=== PATIENT | female | born 1990 | race Caucasian/White ===

== ENCOUNTER → 2016-10-02 | Outpatient (CLI) | payer BC ==
[~2016-10-02] MED LIST: BCTROWC EXT; HYDR-5688 PO; MAGN1CAP4 PO; OMEG10007 PO; PRENTAB26 PO; RANI150T3 PO
== END | disposition home or self-care (01) ==
LOC: C.PAPS 09:40
PROVIDERS: ATTEND Obstetrics & Gynecology
DX: Z01.419 Encounter for gynecological examination (general) (routine) without abnormal findings (principal)

== ENCOUNTER → 2016-11-04 | Outpatient (CLI) | payer BC | END | disposition home or self-care (01) | LOC: C.PATHSPEC 12:24 | PROVIDERS: ATTEND Obstetrics & Gynecology | DX: N84.3 Polyp of vulva (principal) ==

== ENCOUNTER → 2017-04-21 | Outpatient (CLI) | payer BC ==
[2017-04-21 14:54] LABS: URINE APPEARANCE CLOUDY (CLEAR); URINE BILIRUBIN NEG (NEG); URINE COLOR YELLOW; URINE EPITHELIAL CELL AUTO >30 /lpf (0-5); URINE NITRITE NEG (NEG); URINE PH 7.5 (4.5-7.5); UROBILINOGEN NEG (NEG)
[2017-04-21 15:10] LABS: MANUAL MICROSCOPIC REQUIRED? NO; REVIEW REQ? NO
== END | disposition home or self-care (01) ==
LOC: C.LAB1850 13:10
PROVIDERS: ATTEND Obstetrics & Gynecology
DX: R39.9 Unspecified symptoms and signs involving the genitourinary system (principal)

== ENCOUNTER 2017-04-27 17:03 | Emergency (ER) | payer BC ==
[~2017-04-27] VITALS: Ht 162.6 cm; Wt 62.0 kg
[~2017-04-27 17:03] MED LIST changes: -BCTROWC EXT; -HYDR-5688 PO; -MAGN1CAP4 PO; -OMEG10007 PO
[2017-04-27 17:10] VITALS: Ht 162.6 cm; Wt 62.0 kg
[2017-04-27] MEDS ORDERED: OMEG10007 PO (18:02)
[2017-04-27] MEDS ORDERED: MAGN1CAP4 PO (18:02)
[2017-04-27 18:18] LABS: BUN/CREATININE RATIO 19.4 (10-20); CALCIUM 9.2 mg/dl (8.5-10.1); CREATININE 0.82 mg/dl (0.60-1.20); POTASSIUM 4.1 mmol/L (3.5-5.1)
[2017-04-27 18:26] LABS: BASO % 0.4 %; BASO ABS # 0.02 K/uL (0-0.2); COMPLETE YES; EOS % 2.2 %; IG% 0.2 %; LYMPH % 27.8 %; MEAN CELL VOLUME 91.1 fL (80-100); MEAN CORPUSCULAR HEMOGLOBIN 30.1 pg (25-34); MEAN PLATELET VOLUME 10.2 fL (7.4-10.4); MONO % 12.5 %; NEUT % 56.9 %; PLATELET COUNT 189 K/uL (130-400); RED BLOOD COUNT 4.72 M/uL (4.2-5.4); WHITE BLOOD COUNT 5.03 K/uL (4.8-10.8)
[2017-04-27] MEDS ORDERED: BCTROWC EXT (19:00)
[2017-04-27] MEDS ORDERED: NORCO 5/325MG HOME PACK PO ONE (19:00)
[2017-04-27] MEDS ORDERED: HYDR-5688 PO (19:00)
[2017-04-27 19:37] VITALS: BP 113/59; PULSE 62; TEMP 36.9; O2SAT 99
[2017-04-27] MEDS ORDERED: MUPIROCIN 2% OINT 22 GM TUBE EXT ONE (21:00)
--- NOTE | 2017-04-28 23:22 | EMERGENCY ROOM VISIT NOTE ---
ED Visit Note First contact with patient: 17:12 Chief Complaint: I have cellulitis of my face. History of Present Illness: Ms. Germain is a 26-year-old white female who ambulates into the ED accompanied by male friend complaining of facial cellulitis. Patient reports 2 days ago she noticed a cold sore looking lesion on her upper lip on the right. Then the lesion ruptured open last night. When she awoke earlier today she reports she was having lip swelling and facial pain. She was seen at an urgent care center and the attending physician diagnosed her with facial cellulitis and started her on Bactrim. He also encouraged her to come to the emergency department for worsening pain. Currently patient is complaining of a burning pain in the area of her lip lesion. She rates her discomfort 7/10. Her pain is radiating out from the lesion into the cheek, mandible and into the anterior neck. Her pain worsens with palpation of the lesion and movements of the lip. She has not identified any alleviating factors related to the pain. She has not taken any medications for pain prior to arrival at the hospital but does report she started her antibiotics. She denies fevers today but reports last night she was cold and had chills all night. She denies other skin eruptions, other skin color changes, headache, dizziness, lightheadedness, upper respiratory tract symptoms, cough, shortness of breath, chest pain, decreased appetite, nausea, vomiting, abdominal pain, facial numbness/tingling. Review of Systems: As noted above in history of present illness. All body systems were reviewed and found to be negative as noted above. Past Medical History: Specify urinary symptoms, unspecified knee surgery. Current Medications: Multivitamins, fish oil, magnesium. Allergies to Medications: Patient denies. Social History: Patient is not employed; she feels safe in her home environment ; she denies tobacco and alcohol use. Physical Examination: Vital Signs: Date Time Temp Pulse Resp B/P (MAP) Pulse Ox O2 Delivery O2 Flow Rate FiO2 04/27/17 19:37 36.9 62 18 113/59 99 04/27/17 17:10 36.9 95 20 105/60 100 Room Air GENERAL: 26-year-old female in mild distress due to pain, nontoxic-appearing, afebrile and hemodynamically stable. NEUROLOGICAL: Awake, alert and oriented to person, place and time. Answering questions appropriately and following commands. Normal gait. Good hand eye coordination. No focal motor sensory deficits. SKIN: Warm, dry and pink. Right upper lip shows a erythematous skin erosion measuring approximately 1 cm oval in shape surrounded by a clinic crossed. No lymphangitis. Mild edema. Patient has no erythema or edema in the area of her radiation of pain. HEENT: Atraumatic and normocephalic. PERRLA. Sclera white and conjunctiva pink. No drainage from naris. Soft tissue on lips as noted above in SKIN. Oral cavity moist and pink. No intraoral lesions or obvious dental disease. Airway patent. Speech normal. No lymphadenopathy. THORAX: Lungs sounds are clear to auscultation and equal bilaterally with symmetrical chest wall. ABDOMEN: Flat, soft and nontender. Positive bowel sounds in all quadrants. No guarding, rigidity or organomegaly. EXTREMITIES: Moves all extremities well on command and with purpose. ED Course: Patient is assessed as noted above. Patient's medication list was reviewed. Laboratory Testing: Test 04/27/17 17:50 Range/Units White Blood Count 5.03 4.8-10.8 K/uL Red Blood Count 4.72 4.2-5.4 M/uL Hemoglobin 14.2 12.0-16.0 g/dL Hematocrit 43.0 37-47 % Mean Corpuscular Volume 91.1 80-100 fL Mean Corpuscular Hemoglobin 30.1 25-34 pg Mean Corpuscular Hemoglobin Concent 33.0 32-36 g/dl Platelet Count 189 130-400 K/uL Mean Platelet Volume 10.2 7.4-10.4 fL Neutrophils (%) (Auto) 56.9 % Lymphocytes (%) (Auto) 27.8 % Monocytes (%) (Auto) 12.5 % Eosinophils (%) (Auto) 2.2 % Basophils (%) (Auto) 0.4 % Neutrophils # (Auto) 2.86 1.4-6.5 K/uL Lymphocytes # (Auto) 1.40 1.2-3.4 K/uL Monocytes # (Auto) 0.63 0.11-0.59 K/uL Eosinophils # (Auto) 0.11 0-0.5 K/uL Basophils # (Auto) 0.02 0-0.2 K/uL RDW Standard Deviation 41.0 36.4-46.3 fL RDW Coefficient of Variation 12.2 11.5-14.5 % Immature Granulocyte % (Auto) 0.2 % Immature Granulocyte # (Auto) 0.01 0.00-0.02 K/uL Sodium Level 139 136-145 mmol/L Potassium Level 4.1 3.5-5.1 mmol/L Chloride Level 104 98-107 mmol/L Carbon Dioxide Level 30 21-32 mmol/L Anion Gap 5.0 3-11 mmol/L Blood Urea Nitrogen 16 7-18 mg/dl Creatinine 0.82 0.60-1.20 mg/dl Est Creatinine Clear Calc Drug Dose 88.3 ml/min Estimated GFR () 112.9 Estimated GFR (Non- 97.4 BUN/Creatinine Ratio 19.4 10-20 Random Glucose 90 70-99 mg/dl Calcium Level 9.2 8.5-10.1 mg/dl Patient was offered pain medication and refused. Patient was reassessed multiple times during her stay in the emergency department. Patient's case was reviewed with Dr. Saucedo; we agreed on diagnostic approach, treatment, disposition and plan. Patient was educated about today's findings and instructed on her treatment plan ; she verbalized understanding and agreement with this plan. Clinical Impression: Impetigo on lip. Decision-Making: Initially my differential diagnosis I considered impetigo, cellulitis, herpes zoster and other causes. Disposition: Patient discharged home in stable condition accompanied by her ; prior to departure she was reassessed and subjectively reported she was pain-free. Plan: Patient was encouraged to continue her current medications as prescribed including her Bactrim as prescribed. Patient was prescribed Bactroban for her rash and instructed on achieves. Patient was placed on a sliding pain medication scale of ibuprofen, acetaminophen or Mccrory; she was given appropriate narcotic precautions and her name was checked on the state database and no red flags were noted. Patient was encouraged to keep her hands well cleansed. Patient was encouraged to follow-up with family physician for recheck in 36-48 hours. Patient was encouraged return ED for spreading rash, fevers, uncontrolled pain or any new/concerning symptoms.
== END 2017-04-27 19:20 | disposition home or self-care (01) ==
LOC: C.EDB 17:04
DX: L01.00 Impetigo, unspecified (principal)

== ENCOUNTER 2023-04-22 16:24 | Inpatient (IN) ==
[2023-04-22] MEDS ORDERED: SODIUM CHLORIDE 0.9% 1,000 ML IV STA (16:42)
[2023-04-22] MEDS ORDERED: KETOROLAC TROMETHAMINE 15 MG/ML VIAL IV STA (16:42)
[2023-04-22] MEDS ORDERED: ONDANSETRON INJ 2 MG/ML 2 ML VIAL IV STA ×2 (16:42→21:07)
--- NOTE | 2023-04-22 16:42 | ED Triage Note ---
Date of Service April 22, 2023 History of Present Illness This patient was briefly evaluated while in triage. An abbreviated physical exam was performed. This patient is a 32-year-old Female who presents to the ED for evaluation of "extreme pain right here (points to RLQ). I thought it was food poisoning because I had diarrhea, nausea, and vomiting, but it's not getting better." Pt. been unable to keep anything down. Reports "low grade fever of 99.8." Pt. reports chills all day. States had food poisoning about a month ago with similar symptoms. Pt. states she does use medical marijuana as a vape. Physical Exam VITALS: Vitals are noted on the nurse's note and reviewed by myself. GENERAL: This is a 32 year old female, in no acute distress, nondiaphoretic, well-developed well-nourished. SKIN: No obvious rashes, edema, erythema HEAD: Normocephalic atraumatic. EYES: Conjunctivae without injection, sclerae without icterus. NECK: No JVD. LUNGS: No retractions or accessory muscle use. MUSCULOSKELETAL: Normal gait. NEURO: Patient was alert and oriented to person place and time. No focal neurological deficits. Initial orders for labs and / or imaging were placed and patient was placed in the waiting area until a bed is available. Please see further documentation for the full ED course. MDM / Impression Impression Impression: Acute appendicitis, Acute right lower quadrant pain Impression: Acute appendicitis Qualifiers: Acute appendicitis type: with localized peritonitis Appendicitis gangrene presence: unspecified whether gangrene present Appendicitis perforation presence: unspecified whether perforation present Appendicitis abscess presence: unspecified whether abscess present Qualified Code(s): K35.30 - Acute appendicitis with localized peritonitis, without perforation or gangrene
[2023-04-22 18:18] LABS: Basophils # (auto) 0.04 K/uL (0.00-0.20); Basophils % (auto) 0.3 %; Eosinophils # (auto) 0.01 K/uL (0.00-0.50); Eosinophils % (auto) 0.1 %; Hematocrit (blood only) 46.7 % (37.0-47.0); Hemoglobin 15.9 g/dl (12.0-16.0); Immature Granulocytes # (auto) 0.06 K/uL (0.01-0.20); Immature Granulocytes % (auto) 0.4 %; Lymphocytes # (auto) 1.04 K/uL (1.20-3.40); Lymphocytes % (auto) 6.8 %; Mean Corpuscular Hemoglobin 31.4 pg (25.0-34.0); Mean Corpuscular Volume 92.3 fL (80.0-100.0); Mean Platelet Volume 10.2 fL (9.4-12.4); Monocytes # (auto) 0.67 K/uL (0.11-0.59); Monocytes % (auto) 4.4 %; Neutrophils # (auto) 13.42 K/uL (1.40-6.50); Platelet Count 203 K/uL (130-400); RDW Standard Deviation 40.3 fL (36.4-46.3); Red Blood Count 5.06 M/uL (4.20-5.40); White Blood Count 15.24 K/ul (4.8-10.8)
[2023-04-22 18:33] LABS: Albumin Globulin Ratio 1.5 (0.9-2); Albumin Level 4.6 gm/dl (3.4-5.0); BUN Creatinine Ratio 20.5 (10-20); Bilirubin,Total 1.2 mg/dl (0.2-1.0); Calcium 9.6 mg/dl (8.6-10.3); Creatinine Clr Calc Pharmacy 78.9 ml/min; Est GFR (African American) 99.4 ml/min; Est GFR (Non-African American) 85.7 ml/min; Potassium 4.5 mmol/L (3.5-5.1); Total Protein 7.6 gm/dl (6.0-8.3)
[2023-04-22 18:41] LABS: Pregnancy Test, Serum Negative (Negative)
[2023-04-22 19:04] LABS: Appearance Urine Clear (Clear); Bacteria Urine Automated Negative (Negative); Bilirubin Urine Negative (Negative); Blood Urine Negative (Negative); Color Urine Dark Yellow; Epithelial Cell Urine Auto >30 /lpf (0-5); Glucose Urine UA Negative (Negative); Ketones Urine Trace (Negative); Leukocyte Esterase Urine Negative (Negative); Nitrite Urine Negative (Negative); Protein Urine Trace (Negative); Specific Gravity Urine 1.028 (1.000-1.030); Urobilinogen Urine Negative (Negative)
[2023-04-22] MEDS ORDERED: OPTIRAY 320 100ml IV ONE (20:18)
--- NOTE | 2023-04-22 20:56 | CT Scan Report ---
Exam(s): CT ABDOMEN + PELVIS With Contrast IV Amt: 92 ml optiray 320 EXAM: CT Abdomen and Pelvis With Intravenous Contrast CLINICAL HISTORY: Reason for exam: RLQ pain. TECHNIQUE: Axial computed tomography images of the abdomen and pelvis with intravenous contrast. CTDI is 8.99 mGy and DLP is 421.45 mGy-cm. Automated exposure control was utilized for the study. A dose lowering technique was utilized adhering to the principles of ALARA. CONTRAST: Patient received 92 ml optiray 320 of IV contrast COMPARISON: No relevant prior studies available. FINDINGS: Lung bases: Unremarkable. No mass. No consolidation. ABDOMEN: Liver: Unremarkable. No mass. Gallbladder and bile ducts: Unremarkable. No calcified stones. No ductal dilation. Pancreas: Unremarkable. No mass. No ductal dilation. Spleen: Unremarkable. No splenomegaly. Adrenals: Unremarkable. No mass. Kidneys and ureters: Unremarkable. No solid mass. No hydronephrosis. Stomach and bowel: Unremarkable. No obstruction. No mucosal thickening. PELVIS: Appendix: Positive for acute appendicitis, consisting of a distended appendix measuring up to 9 mm with mild wall thickening and mild periappendiceal edema. Bladder: Unremarkable. No mass. Reproductive: Unremarkable as visualized. ABDOMEN and PELVIS: Intraperitoneal space: Unremarkable. No free air. No significant fluid collection. Bones/joints: No acute fracture. No dislocation. Soft tissues: Unremarkable. Vasculature: Unremarkable. No abdominal aortic aneurysm. Lymph nodes: Unremarkable. No enlarged lymph nodes. IMPRESSION: Positive for acute appendicitis, consisting of a distended appendix measuring up to 9 mm with mild wall thickening and mild periappendiceal edema. No perforation or abscess. Communications: Verify Receipt Electronically signed by: Israel Sy MD 04/22/23 20:56 PM
[2023-04-22] MEDS ORDERED: SODIUM CHLORIDE 0.9% 1,000 ML IV ONE (21:07)
[2023-04-22] MEDS ORDERED: cefOXitin 2,000 MG/60 ML BAG IV STA (21:07)
[2023-04-22] MEDS ORDERED: MoRPHine SULFATE 4 MG/ML 1 ML CARP\\VIAL IV STA (21:07)
--- NOTE | 2023-04-22 21:18 | Emergency Department Note ---
Impression & Plan Acute appendicitis, Acute right lower quadrant pain ED Provider Note NAME: KAIDEN EDDY AGE: 32 SEX: F : 1990 ARRIVES VIA: Walk-In INFORMANT: Patient, ED PROVIDER(S): Martinez Suresh DO CHIEF COMPLAINT: Right lower quadrant abdominal pain HPI: The patient is a 32-year-old female who presented to the emergency department for an evaluation of right-sided abdominal pain. The patient's had ongoing pain since this morning. She is also noticed nausea and vomiting. Initially she thought it could be from food poisoning. He has no sick contacts. She did not see a provider prior to coming emergency department. Because of ongoing and worsening pain she presented to the emergency department for further evaluation. The patient states her pain is worse with ambulation as well as palpation over the abdomen. She denies having any hematemesis or black stool. ROS: See above HPI for pertinent positives & negatives. A total of 10 systems reviewed and were otherwise negative. PAST MEDICAL HISTORY: See Below PAST SURGICAL HISTORY: See Below FAMILY HISTORY: See Below SOCIAL HISTORY: See Below HOME MEDICATIONS: See Below ALLERGIES: See Below VITALS: See Below PHYSICAL EXAMINATION: GENERAL: The patient is awake and alert. She is very anxious and uncomfortable appearing. The patient was treated with nausea medication. EYES: The conjunctivae are clear. The pupils are round and reactive. EARS, NOSE, MOUTH AND THROAT: The nose is without any evidence of any deformity. NECK: The neck is nontender and supple. RESPIRATORY: Normal respiratory effort is noted there is no evidence of wheezing rhonchi or rales CARDIOVASCULAR: Regular rate and rhythm noted there no murmurs rubs or gallops normal S1 normal S2. GASTROINTESTINAL: The abdomen was soft and nondistended. There is significant right lower quadrant tenderness to palpation with guarding in the right lower quadrant. MUSCULOSKELETAL/EXTREMITIES: There is no evidence of gross deformity full range of motion is noted in the hips and shoulders. SKIN: There is no obvious evidence of any rash. There are no petechiae, pallor or cyanosis noted. NEUROLOGIC: Patient is awake alert and oriented x3 MEDICAL DECISION MAKING: The patient is a 32-year-old female who presented to the emergency department for an evaluation of right lower quad abdominal pain. The patient's laboratory studies did reveal an elevation in her white blood cell count. She was found to have signs of appendicitis on CT. I discussed the patient's laboratory and radiographic studies with her and her significant other. I also discussed her condition with the on-call general surgical group. They have agreed to evaluate the patient in the emergency department. Triage Nursing notes reviewed. Prior medical records reviewed Vital Signs: reviewed and remarkable for no significant abnormalities Differential diagnosis: Etiologies such as appendicitis, diverticulitis, obstruction, inflammatory bowel disease, renal colic, PUD, biliary pathology, pancreatitis, mesenteric ischemia, aortic pathology, infections, genitourinary, UTI, perforated viscus, as well as others were entertained. ER treatment provided: See below Diagnostics interpreted by me: ECG: none Cardiac Monitoring: An order was placed for continuous cardiac monitoring. The monitor shows a rate of 87 bpm with sinus rhythm. Laboratory studies: As stated above and show below. Imaging studies: See below. Radiographic imaging was reviewed by myself Consultation(s): I discussed this case with Zeferino Wall who is covering for general surgery. Past Med/Surg History Medical History 40 weeks gestation of (08/16/14) Acne Ankle pain, left Attention 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 hyperactivity Controlled substance agreement broken Controlled substance agreement broken Depression with anxiety Dysmenorrhea Encounter for routine gynecological examination Excessive sweating Herpes simplex Hymenal remnant Removed in office 2017 [place] Hypertension Insomnia Irregular contractions Leakage of amniotic fluid (08/16/14) Migraine headache Normal spontaneous vaginal delivery Panic disorder with agoraphobia Polycystic ovarian syndrome Seizures (08/04/13) Syncope Tremor Surgical History H/O knee surgery H/O oral surgery Hx of LASIK Family History Father Crohn's disease Diabetes Mother Anxiety Grandfather (Paternal) Myocardial infarction Denies family history of Ovarian cancer Prostate cancer Breast cancer Colorectal cancer Social History Smoking Status: Never smoker Cigarettes Per Day: Vape occasionally; Second Hand Exposure: No; Do You Dip or Chew Tobacco: No; Hx Alcohol Use: No Hx Substance Use: Yes Prescribed Medications: Marijuana Preferred Language: [place] Communication Ability: Effective Hearing Ability: Normal marital status: Current Living Situation: Family current occupational status: unemployed current occupation: Homemaker Feels Safe at Home: Yes Childhood Exposure to Second-Hand Smoke: No Diet: regular caffeine: Yes Dental Care, Regularly: Yes Physical Activity Frequency: 5-6 Times per Week Seatbelt Use: always Sunscreen Use: Yes Allergies Allergies Allergy/AdvReac Type Severity Reaction Status Date / Time No Known Drug Allergies Allergy Verified 02/11/23 14:30 Home Meds Home Medications Medication Instructions Recorded Confirmed multivitamin,[id number] 1 tab PO DAILY 04/08/19 02/11/23 (Complete Multivitamin tablet) Medical Marjuana inhalation 02/11/23 02/11/23 Previous Rx's Medication Instructions Recorded cetirizine 5 mg-pseudoephedrine ER 1 tab PO BID #60 tabs 04/24/22 120 mg tablet,extended release,12hr (Zyrtec-D) fluticasone propionate 50 1 spray intranasal DAILY #16 grams 04/24/22 mcg/actuation nasal spray,suspension (Flonase Allergy Relief) levonorgestrel-ethinyl estradiol 1 tab PO DAILY #112 tabs 02/11/23 0.1 mg-20 mcg tablet (Lutera (28)) valacyclovir 1 gram tablet 2,000 mg PO BID PRN cold sores #4 02/11/23 (Valtrex) tabs trazodone 50 mg tablet 50 mg PO HS insomnia #90 tabs 04/22/23 Results & Data (ED) Vital Signs Vital Signs - 24 hr 04/22/23 16:41 Temperature 36.9 C Temperature Source Temporal Artery Scan Pulse Rate 87 Respiratory Rate 18 Respiratory Effort / Characteristics Non-Labored Respiratory Depth Normal Blood Pressure 133/68 Blood Pressure Mean 89 Pulse Oximetry 100 Oxygen Delivery Method Room Air Sepsis Recent Fever Within 48 Hours No Sepsis New/Unexplained Change in Mental Status No Sepsis Action Taken by Nursing No Action Required Home Medications Current Medication List: was personally reviewed by me Laboratory Data Attestation: I reviewed the patient's lab results. 04/22/23 17:46 04/22/23 17:46 Lab Results 04/22/23 04/22/23 04/22/23 Range/Units 17:46 17:46 17:46 WBC 15.24 H (4.8-10.8) K/ul RBC 5.06 (4.20-5.40) M/uL Hgb 15.9 (12.0-16.0) g/dl Hct 46.7 (37.0-47.0) % MCV 92.3 (80.0-100.0) fL MCH 31.4 (25.0-34.0) pg MCHC 34.0 (32.0-36.0) g/dL RDW Std Deviation 40.3 (36.4-46.3) fL RDW Coeff of Malika 12.0 (11.5-14.5) % Plt Count 203 (130-400) K/uL MPV 10.2 (9.4-12.4) fL Immature Gran % (Auto) 0.4 % Neut % (Auto) 88.0 % Lymph % (Auto) 6.8 % [place] % (Auto) 4.4 % Eos % (Auto) 0.1 % Baso % (Auto) 0.3 % Neut # (Auto) 13.42 H (1.40-6.50) K/uL Lymph # (Auto) 1.04 L (1.20-3.40) K/uL [place] # (Auto) 0.67 H (0.11-0.59) K/uL Eos # (Auto) 0.01 (0.00-0.50) K/uL Baso # (Auto) 0.04 (0.00-0.20) K/uL Immature Gran # (Auto) 0.06 (0.01-0.20) K/uL Sodium 139 (136-145) mmol/L Potassium 4.5 (3.5-5.1) mmol/L Chloride 101 (98-107) mmol/L Carbon Dioxide 29 (21-32) mmol/L Anion Gap 9 (3-11) BUN 18 (6-23) mg/dl Creatinine 0.88 (0.6-1.2) mg/dl Est Cr Clr Drug Dosing 78.9 ml/min Est GFR ( Amer) 99.4 ml/min Est GFR (Non-Af Amer) 85.7 ml/min BUN/Creatinine Ratio 20.5 H (10-20) Glucose 108 H (70-99(Fasting)) mg/dl Calcium 9.6 (8.6-10.3) mg/dl Total Bilirubin 1.2 H (0.2-1.0) mg/dl AST 22 (13-39) U/L ALT 22 (7-52) U/L Alkaline Phosphatase 45 (34-104) U/L Total Protein 7.6 (6.0-8.3) gm/dl Albumin 4.6 (3.4-5.0) gm/dl Globulin 3.0 (2.5-4.0) gm/dl Albumin/Globulin Ratio 1.5 (0.9-2) Lipase 15 (11-82) U/L HCG, Qual Negative (Negative) Urine Color Urine Appearance (Clear) Urine pH (4.5-7.5) Ur Specific [place] (1.000-1.030) Urine Protein (Negative) Urine Glucose (UA) (Negative) Urine Ketones (Negative) Urine Blood (Negative) Urine Nitrite (Negative) Urine Bilirubin (Negative) Urine Urobilinogen (Negative) Ur Leukocyte Esterase (Negative) Urine WBC (Auto) (0-5) /hpf Urine RBC (Auto) (0-4) /hpf U Hyaline Cast (Auto) (0-5) /lpf U Epithel Cells (Auto) (0-5) /lpf Urine Bacteria (Auto) (Negative) 04/22/23 Range/Units 17:56 WBC (4.8-10.8) K/ul RBC (4.20-5.40) M/uL Hgb (12.0-16.0) g/dl Hct (37.0-47.0) % MCV (80.0-100.0) fL MCH (25.0-34.0) pg MCHC (32.0-36.0) g/dL RDW Std Deviation (36.4-46.3) fL RDW Coeff of Malika (11.5-14.5) % Plt Count (130-400) K/uL MPV (9.4-12.4) fL Immature Gran % (Auto) % Neut % (Auto) % Lymph % (Auto) % Mes[place] % (Auto) % Eos % (Auto) % Baso % (Auto) % Neut # (Auto) (1.40-6.50) K/uL Lymph # (Auto) (1.20-3.40) K/uL [place] # (Auto) (0.11-0.59) K/uL Eos # (Auto) (0.00-0.50) K/uL Baso # (Auto) (0.00-0.20) K/uL Immature Gran # (Auto) (0.01-0.20) K/uL Sodium (136-145) mmol/L Potassium (3.5-5.1) mmol/L Chloride (98-107) mmol/L Carbon Dioxide (21-32) mmol/L Anion Gap (3-11) BUN (6-23) mg/dl Creatinine (0.6-1.2) mg/dl Est Cr Clr Drug Dosing ml/min Est GFR ( Amer) ml/min Est GFR (Non-Af Amer) ml/min BUN/Creatinine Ratio (10-20) Glucose (70-99(Fasting)) mg/dl Calcium (8.6-10.3) mg/dl Total Bilirubin (0.2-1.0) mg/dl AST (13-39) U/L ALT (7-52) U/L Alkaline Phosphatase (34-104) U/L Total Protein (6.0-8.3) gm/dl Albumin (3.4-5.0) gm/dl Globulin (2.5-4.0) gm/dl Albumin/Globulin Ratio (0.9-2) Lipase (11-82) U/L HCG, Qual (Negative) Urine Color Dark Yellow Urine Appearance Clear (Clear) Urine pH 7.0 (4.5-7.5) Ur Specific [place] 1.028 (1.000-1.030) Urine Protein Trace H (Negative) Urine Glucose (UA) Negative (Negative) Urine Ketones Trace H (Negative) Urine Blood Negative (Negative) Urine Nitrite Negative (Negative) Urine Bilirubin Negative (Negative) Urine Urobilinogen Negative (Negative) Ur Leukocyte Esterase Negative (Negative) Urine WBC (Auto) 1-5 (0-5) /hpf Urine RBC (Auto) 5-10 H (0-4) /hpf U Hyaline Cast (Auto) 1-5 (0-5) /lpf U Epithel Cells (Auto) >30 H (0-5) /lpf Urine Bacteria (Auto) Negative (Negative) Administered Medications Discontinued Medications Sodium Chloride (Nss) 1,000 mls @ 999 mls/hr IV .Q1H1M STA Stop: 04/22/23 17:42 Last Admin: 04/22/23 17:55 Dose: 999 mls/hr Documented By: AM Ioversol (Optiray 320 100ml) 92 ml IV ONCE ONE Stop: 04/22/23 20:19 Last Admin: 04/22/23 20:19 Dose: 92 ml Documented By: RANJIT Ketorolac Tromethamine (Ketorolac Tromethamine 15 Mg/Ml Vial) 10 mg IV NOW STA Stop: 04/22/23 16:43 Last Admin: 04/22/23 17:52 Dose: 10 mg Documented By: AM Ondansetron HCl (Ondansetron Inj 2 Mg/Ml 2 Ml Vial) 4 mg IV NOW STA Stop: 04/22/23 16:43 Last Admin: 04/22/23 17:50 Dose: 4 mg Documented By: AM Imaging Data Attestation: I personally reviewed and interpreted this imaging study as follows: My Impression: CT of the abdomen and pelvis was obtained in the emergency department. My interpretation is right lower quadrant inflammation. Final report below. Radiologist's Impression: Abdomen/Pelvis CT 04/22/23 16:42 CR Exam(s): CT ABDOMEN + PELVIS With Contrast IV Amt: 92 ml optiray 320 EXAM: CT Abdomen and Pelvis With Intravenous Contrast CLINICAL HISTORY: Reason for exam: RLQ pain. TECHNIQUE: Axial computed tomography images of the abdomen and pelvis with intravenous contrast. CTDI is 8.99 mGy and DLP is 421.45 mGy-cm. Automated exposure control was utilized for the study. A dose lowering technique was utilized adhering to the principles of ALARA. CONTRAST: Patient received 92 ml optiray 320 of IV contrast COMPARISON: No relevant prior studies available. FINDINGS: Lung bases: Unremarkable. No mass. No consolidation. ABDOMEN: Liver: Unremarkable. No mass. Gallbladder and bile ducts: Unremarkable. No calcified stones. No ductal dilation. Pancreas: Unremarkable. No mass. No ductal dilation. Spleen: Unremarkable. No splenomegaly. Adrenals: Unremarkable. No mass. Kidneys and ureters: Unremarkable. No solid mass. No hydronephrosis. Stomach and bowel: Unremarkable. No obstruction. No mucosal thickening. PELVIS: Appendix: Positive for acute appendicitis, consisting of a distended appendix measuring up to 9 mm with mild wall thickening and mild periappendiceal edema. Bladder: Unremarkable. No mass. Reproductive: Unremarkable as visualized. ABDOMEN and PELVIS: Intraperitoneal space: Unremarkable. No free air. No significant fluid collection. Bones/joints: No acute fracture. No dislocation. Soft tissues: Unremarkable. Vasculature: Unremarkable. No abdominal aortic aneurysm. Lymph nodes: Unremarkable. No enlarged lymph nodes. IMPRESSION: Positive for acute appendicitis, consisting of a distended appendix measuring up to 9 mm with mild wall thickening and mild periappendiceal edema. No perforation or abscess. Communications: Verify Receipt Electronically signed by: Israel Sy MD 04/22/23 20:56 PM Discharge Plan Visit Data Chief Complaint: Abdominal Pain Stated Complaint: L RIGHT ABD PAIN, FEVER, NAUSEA, VOMITING ED Provider: Martinez Suresh Discharge Problem: Acute appendicitis, Acute right lower quadrant pain Patient Disposition: Being Evaluated by Surgeon Forms Stand Alone Forms: [facility] Prescriptions Prescriptions: No Action trazodone 50 mg tablet 50 mg PO HS Qty: 90 3RF cetirizine-pseudoephedrine [Zyrtec-D] 5-120 mg tablet extended release 12 hr 1 tab PO BID Qty: 60 0RF fluticasone propionate [Flonase Allergy Relief] 50 mcg/actuation spray,suspension 1 spray intranasal DAILY Qty: 16 2RF Rx Instructions: administer into each nostril Medical Marjuana inhalation levonorgestrel-ethinyl estrad [Lutera (28)] 0.1-20 mg-mcg tablet 1 tab PO DAILY Qty: 112 3RF Rx Instructions: Take 1 tablet by mouth daily of active pills only. Does not take placebo pills. valacyclovir [Valtrex] 1 gram tablet 2,000 mg PO BID PRN (Reason: cold sores) Qty: 4 5RF Complete Multivitamin tablet 1 tab PO DAILY Referrals Referrals: Andres Medina DO [Primary Care Provider] -
[2023-04-22] MEDS ORDERED: PIPERACILLIN/TAZOBACTAM 4.5 GM/120 ML BAG IV ONE (21:25)
[2023-04-22] MEDS ORDERED: ACETAMINOPHEN 1,000 MG/100 ML VIAL IV PRN (21:53)
[2023-04-22] MEDS ORDERED: MoRPHine SULFATE 4 MG/ML 1 ML CARP\\VIAL IV PRN (21:53)
[2023-04-22] MEDS ORDERED: ONDANSETRON INJ 2 MG/ML 2 ML VIAL IV PRN (21:53)
--- NOTE | 2023-04-22 22:43 | History & Physical Report ---
Date of Service April 22, 2023 Assessment & Plan (1) Acute appendicitis: Plan: Due to the patient's clinical presentation, labs, and findings on imaging she will be admitted to the hospital proceeding as follows: Analgesics to be provided Antiemetics to be provided N.p.o. status will be implemented Hydration measures with IV fluid will be employed. Serial labs with Antibiotics to be administered. Zosyn has been given in the emergency department and will be continued upon admission We have tentatively scheduled the patient for an appendectomy with Dr. Horton on 04/23/2023. At the present time the patient does exhibit leukocytosis but she is normotensive without tachycardia or fever. She is not in acute kidney injury. Orders have been placed for the nursing staff to notify general surgery if patient develops any hypotension, fevers, or tachycardia which may necessitate an earlier OR time Additional recommendations to be forthcoming based on operative findings and her clinical course as it unfolds We will use SCDs for DVT prevention, no chemical means due to planned surgery She will be a level 1 full code History of Present Illness Chief Complaint: Abdominal pain Primary Care Provider: Andres Medina DO This is a 32-year-old female who presented the emergency department secondary to abdominal pain. Patient says that earlier this morning she developed some abdominal pain that is located in the periumbilical region as well as the right lower quadrant. She notes that the pain is worse with movement and was improved with some Toradol that was administered in the emergency department. She does not report any radiation of the pain. With her pain she has had associated nausea and vomiting and has had a low-grade temperature of 99.9. She has never had any prior abdominal surgeries. She notes her most recent oral intake was at approximately 3:00 PM on 04/22/2023 at which time she had a few small sips of water, and she also reports consuming oral contrast with the CT scan that will be delineated below Since arrival to the hospital the patient has had labs and imaging which independent reviewed. Patient did have a CT scan of the abdomen pelvis that showed patient had a distended appendix measuring approximate 9 mm with mild wall thickening and periappendiceal edema. There is no perforation or abscess noted but these findings were concerning for acute appendicitis. Labs included a CBC her white blood cell count was elevated 15.2. Hemoglobin, hematocrit, and platelet count were all normal. Chemistry profile showed sodium, potassium, BUN, and creatinine were normal. Her total bilirubin has slight elevation at 1.2 but the remaining LFTs and lipase were nonelevated. test was negative. Urinalysis was not indicative of infection. At the time of my interview the patient was resting comfortably in bed and she was in no distress. Allergies Allergy/AdvReac Type Severity Reaction Status Date / Time No Known Allergies Allergy Verified 04/22/23 21:31 Home Medications Medication Instructions Recorded Confirmed Type Medical Marjuana 1 dose inhalation DIRECTED PRN 02/11/23 04/22/23 History INSOMNIA/ANXIETY levonorgestrel-ethinyl estradiol 1 tab PO DAILY #112 tabs 02/11/23 04/22/23 Rx 0.1 mg-20 mcg tablet (Lutera (28)) valacyclovir 1 gram tablet 2,000 mg PO BID PRN cold sores #4 02/11/23 04/22/23 Rx (Valtrex) tabs bupropion HCl 150 mg 24 hr tablet, 150 mg PO QAM 04/22/23 04/22/23 History extended release cetirizine 5 mg-pseudoephedrine ER 1 tab PO BID PRN Congestion 04/22/23 04/22/23 History 120 mg tablet,extended release,12hr (Zyrtec-D) fluticasone propionate 50 1 spray intranasal DAILY PRN 04/22/23 04/22/23 History mcg/actuation nasal Congestion spray,suspension (Flonase Allergy Relief) multivitamin 1 tab PO DAILY 04/22/23 04/22/23 History trazodone 50 mg tablet 50 mg PO HS insomnia #90 tabs 04/22/23 04/22/23 Rx Past Med/Surg History Medical History 40 weeks gestation of (08/16/14) Acne Ankle pain, left Attention 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 hyperactivity Controlled substance agreement broken Controlled substance agreement broken Depression with anxiety Dysmenorrhea Encounter for routine gynecological examination Excessive sweating Herpes simplex Hymenal remnant Removed in office 2017 Ronit Hypertension Insomnia Irregular contractions Leakage of amniotic fluid (08/16/14) Migraine headache Normal spontaneous vaginal delivery Panic disorder with agoraphobia Polycystic ovarian syndrome Seizures (08/04/13) Syncope Tremor Surgical History H/O knee surgery H/O oral surgery Hx of LASIK Family History Father Crohn's disease Diabetes Mother Anxiety Grandfather (Paternal) Myocardial infarction Denies family history of Ovarian cancer Prostate cancer Breast cancer Colorectal cancer Social History Smoking Status: Never smoker Cigarettes Per Day: Vape occasionally; Second Hand Exposure: No; Do You Dip or Chew Tobacco: No; Hx Alcohol Use: No Hx Substance Use: Yes Prescribed Medications: Marijuana Preferred Language: Frisian Communication Ability: Effective Hearing Ability: Normal marital status: Current Living Situation: Family current occupational status: unemployed current occupation: Homemaker Feels Safe at Home: Yes Childhood Exposure to Second-Hand Smoke: No Diet: regular caffeine: Yes Dental Care, Regularly: Yes Physical Activity Frequency: 5-6 Times per Week Seatbelt Use: always Sunscreen Use: Yes Review of Systems Constitutional: + fever Ear, Nose, Mouth, Throat: no hearing loss Respiratory: no cough and no dyspnea Cardiovascular: no chest pain Gastrointestinal: as per Subjective / HPI Genitourinary: no dysuria Musculoskeletal: no back pain Integumentary: no rash Neurologic: no localized weakness Physical Exam Constitutional: WD/WN, vitals as above Eyes: no conjunctival abnormality ENMT: Ears: no hearing impairment and no external ear abnormality Oromucosa is moist. Patient had a tongue piercing in place Neck: trachea midline Respiratory: normal respiratory effort, lungs clear to auscultation Cardiovascular: Rate/Rhythm: regular rate Vessels: dorsalis pedis pulses present and radial pulses present Gastrointestinal (Abdomen): Abdomen is soft and nonrigid. It is nondistended. Bowel sounds are hypoactive. Patient did have pain with palpation in the right lower quadrant over McBurney's point with some slight rebound tenderness noted Musculoskeletal: No calf tenderness Skin: no rashes Neurologic: moves all extremities Psychiatric: A+Ox3, euthymic affect Results & Data Results & Data Vital Signs (Past 12 Hours) Vital Signs Temp Pulse Pulse Resp BP BP Pulse Ox 04/22/23 22:15 69 20 04/22/23 22:03 87 16 04/22/23 21:45 75 17 04/22/23 21:34 83 18 04/22/23 21:48 84 04/22/23 21:36 80 18 133/76 98 04/22/23 21:36 98 04/22/23 16:41 36.9 C 87 18 133/68 100 O2 Del Method 04/22/23 22:15 04/22/23 22:03 04/22/23 21:45 04/22/23 21:34 04/22/23 21:48 04/22/23 21:36 Room Air 04/22/23 21:36 Room Air 04/22/23 16:41 Room Air Code Status & VTE Plan VTE Prophylaxis Plan VTE Prophylaxis will be ordered: Yes Supervising Physician Co-Signing Physician Notes d/w tariq Chavarria, labs and imaging reviewed, agree with above. ct reviewed and agree with assessment of dilated appedix with inflammation but no perforation. plan for lap appy in am. iv abx. PG Care Time/CCT Total # of Minutes Spent Total Time Spent with Patient: Total time spent is greater than 50% in coordination of care (as documented) at patient's floor/unit and/or counseling patient: Coding Level of Care Code 94549 INT INP/OBS CARE MIN Diagnoses Acute appendicitis K35.30 Acute appendicitis type: with localized peritonitis Appendicitis abscess presence: unspecified whether abscess present Appendicitis gangrene presence: unspecified whether gangrene present Appendicitis perforation presence: unspecified whether perforation present (1) Acute appendicitis Acute appendicitis type: with localized peritonitis Appendicitis abscess presence: unspecified whether abscess present Appendicitis gangrene presence: unspecified whether gangrene present Appendicitis perforation presence: unspecified whether perforation present Qualified Code(s): K35.30 - Acute appendicitis with localized peritonitis, without perforation or gangrene
[2023-04-22] MEDS: SODIUM CHLORIDE 0.9% 1,000 ML IV SCH (23:40)
[2023-04-22] MEDS ORDERED: traZODone HCL 50 MG TAB PO ONE (23:56)
[2023-04-23] MEDS ORDERED: PROMETHAZINE HCL 6.25 MG in SODIUM CHLORIDE 0.9% 50 ML IV PRN (00:46)
[2023-04-23] MEDS ORDERED: PIPERACILLIN/TAZOBACTAM 4.5 GM in DEXTROSE 5% 100 ML IV SCH (04:00)
[2023-04-23 06:41] LABS: Calcium 7.7 mg/dl (8.6-10.3); Creatinine Clr Calc Pharmacy 76.7 ml/min; Est GFR (African American) 92.9 ml/min; Est GFR (Non-African American) 80.2 ml/min; Potassium 4.4 mmol/L (3.5-5.1)
[2023-04-23 06:50] LABS: Basophils # (auto) 0.03 K/uL (0.00-0.20); Basophils % (auto) 0.3 %; Eosinophils # (auto) 0.07 K/uL (0.00-0.50); Eosinophils % (auto) 0.8 %; Hematocrit (blood only) 37.4 % (37.0-47.0); Hemoglobin 12.5 g/dl (12.0-16.0); Immature Granulocytes # (auto) 0.05 K/uL (0.01-0.20); Immature Granulocytes % (auto) 0.6 %; Lymphocytes # (auto) 2.06 K/uL (1.20-3.40); Lymphocytes % (auto) 23.7 %; Mean Corpuscular Hemoglobin 31.3 pg (25.0-34.0); Mean Corpuscular Hgb Conc 33.4 g/dL (32.0-36.0); Mean Corpuscular Volume 93.7 fL (80.0-100.0); Mean Platelet Volume 9.8 fL (9.4-12.4); Monocytes # (auto) 0.61 K/uL (0.11-0.59); Neutrophils # (auto) 5.87 K/uL (1.40-6.50); Neutrophils % (auto) 67.6 %; Platelet Count 148 K/uL (130-400); RDW Coefficient of Variation 11.9 % (11.5-14.5); RDW Standard Deviation 41.2 fL (36.4-46.3); Red Blood Count 3.99 M/uL (4.20-5.40); White Blood Count 8.69 K/ul (4.8-10.8)
[2023-04-23] MEDS ORDERED: fentaNYL citrate PF 100 MCG/2 ML VIAL ONE (07:47)
[2023-04-23] MEDS ORDERED: PROPOFOL IV EMULSION 10 MG/ML 20 ML VIAL IV ONE ×2 (07:47→10:28)
[2023-04-23] MEDS ORDERED: ONDANSETRON INJ 2 MG/ML 2 ML VIAL ONE (07:47)
[2023-04-23] MEDS ORDERED: MIDAZOLAM HCL 1 MG/ML 2ML VIAL ONE (07:47)
[2023-04-23] MEDS ORDERED: LIDOCAINE 2% 2 ML VIAL/AMP(20MG/ML) INFIL ONE ×2 (07:47→07:49)
[2023-04-23] MEDS ORDERED: DEXAMETHASONE SOD INJ 4 MG/ML VIAL ONE ×2 (07:47→11:29)
[2023-04-23] MEDS ORDERED: ROCURONIUM BROMIDE 10 MG/ML 5 ML VIAL IV ONE (07:53)
[2023-04-23] MEDS ORDERED: BUPIVACAINE 0.5 % 5 MG/1 ML MPF 30ML VIAL ONE (08:14)
--- NOTE | 2023-04-23 08:46 | Anesthesiology Consultation ---
Date of Service April 23, 2023 Assessment & Plan Chart Review Chart Review: Acceptable Risk for Surgery Consults Requested none History Surgery Operation Date: 04/23/23 07:00 Proposed Procedures p Laparoscopic Appendectomy Possible Filipe - Nicholas Horton DO, FACS Height/Weight Height: 5 ft 5 in Weight: 57.3 kg Allergies Allergy/AdvReac Type Severity Reaction Status Date / Time No Known Allergies Allergy Verified 04/23/23 07:48 Medications Home Medications Medication Instructions Recorded Confirmed Last Taken Medical Marjuana 1 dose inhalation DIRECTED PRN 02/11/23 04/22/23 Unknown INSOMNIA/ANXIETY levonorgestrel-ethinyl estradiol 1 tab PO DAILY #112 tabs 02/11/23 04/22/23 04/22/23 0.1 mg-20 mcg tablet (Lutera (28)) valacyclovir 1 gram tablet 2,000 mg PO BID PRN cold sores #4 02/11/23 04/22/23 Unknown (Valtrex) tabs bupropion HCl 150 mg 24 hr tablet, 150 mg PO QAM 04/22/23 04/22/23 04/22/23 extended release cetirizine 5 mg-pseudoephedrine ER 1 tab PO BID PRN Congestion 04/22/23 04/22/23 Unknown 120 mg tablet,extended release,12hr (Zyrtec-D) fluticasone propionate 50 1 spray intranasal DAILY PRN 04/22/23 04/22/23 Unknown mcg/actuation nasal Congestion spray,suspension (Flonase Allergy Relief) multivitamin 1 tab PO DAILY 04/22/23 04/22/23 04/22/23 trazodone 50 mg tablet 50 mg PO HS insomnia #90 tabs 04/22/23 04/22/23 04/21/23 Active Medications Generic Name Dose Route Start Last Admin Trade Name Freq PRN Reason Stop Dose Admin Sodium Chloride 1,000 mls @ 125 mls/hr 04/22/23 21:30 04/23/23 08:06 Nss IV 05/22/23 21:29 Infused .Q8H ANABELLA Infusion Acetaminophen 1,000 mg in 100 mls @ 400 mls/hr 04/22/23 21:53 04/22/23 23:55 Ofirmev IV 04/25/23 21:52 Infused Q8H PRN Infusion Moderate Pain (Scale 4, 5, 6) Piperacillin Sod/Tazobactam 120 mls @ 30 mls/hr 04/23/23 04:00 04/23/23 07:57 Sod 4.5 gm/ Dextrose IV 05/03/23 03:59 Infused Q8H ANABELLA Infusion Protocol Promethazine HCl 6.25 mg/ 50.25 mls @ 201 mls/hr 04/23/23 00:46 04/23/23 01:42 Sodium Chloride IV 05/23/23 00:45 Infused Q6H PRN Infusion Nausea And Vomiting Miscellaneous 1 each 04/23/23 00:00 04/23/23 00:38 Order Awaiting Action: Levonorgestrel-Ethinyl Estrad [Lutera (28)] 0.1-20 Mg- Mcg Table N/A 05/23/23 00:00 Not Given QS ANABELLA Morphine Sulfate 3 mg 04/22/23 21:53 04/23/23 05:09 Morphine Sulfate 4 Mg/Ml 1 Ml Carp\Vial IV 05/06/23 21:52 3 mg Q3H PRN Administration Severe Pain (Scale 7, 8, 9,10) NPO Date Last Intake of Fluids: 04/22/23 Time Last Intake of Fluids: 23:55 Date Last Intake of Solids: 04/22/23 Time Last Intake of Solids: 08:00 Past Medical History Medical History 40 weeks gestation of (08/16/14) Acne Ankle pain, left Attention 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 hyperactivity Controlled substance agreement broken Controlled substance agreement broken Depression with anxiety Dysmenorrhea Encounter for routine gynecological examination Excessive sweating Herpes simplex Hymenal remnant Removed in office 2017 Ronit Hypertension Insomnia Irregular contractions Leakage of amniotic fluid (08/16/14) Migraine headache Normal spontaneous vaginal delivery Panic disorder with agoraphobia Polycystic ovarian syndrome Seizures (08/04/13) Syncope Tremor Past Family History Family History Father Crohn's disease Diabetes Mother Anxiety Grandfather (Paternal) Myocardial infarction Denies family history of Ovarian cancer Prostate cancer Breast cancer Colorectal cancer Past Surgical History Surgical History H/O knee surgery H/O oral surgery Hx of LASIK Social History Smoking Status: Never smoker tobacco type: e-cigarettes Smoking cigarettes per day: Vape occasionally Do You Dip or Chew Tobacco: No Hx Alcohol Use: No Hx Substance Use: Yes substance use type: marijuana Substance Use Type Other:: 04/21/23 Physical Exam Vital Signs Last Vital Signs Temp 36.6 C 04/23/23 07:48 Pulse 71 04/23/23 07:48 Resp 20 04/23/23 07:48 BP 117/47 L 04/23/23 07:48 Pulse Ox 99 04/23/23 08:07 O2 Del Method Room Air 04/23/23 08:07 Testing Laboratory Results 04/23/23 05:55 04/23/23 05:55 Urine Color Dark Yellow 04/22/23 17:56 Urine Appearance Clear (Clear) 04/22/23 17:56 Urine pH 7.0 (4.5-7.5) 04/22/23 17:56 Ur Specific [place] 1.028 (1.000-1.030) 04/22/23 17:56 Urine Protein Trace (Negative) H 04/22/23 17:56 Urine Glucose (UA) Negative (Negative) 04/22/23 17:56 Urine Ketones Trace (Negative) H 04/22/23 17:56 Urine Nitrite Negative (Negative) 04/22/23 17:56 Ur Leukocyte Esterase Negative (Negative) 04/22/23 17:56 Urine WBC (Auto) 1-5 /hpf (0-5) 04/22/23 17:56 Urine RBC (Auto) 5-10 /hpf (0-4) H 04/22/23 17:56 U Hyaline Cast (Auto) 1-5 /lpf (0-5) 04/22/23 17:56 U Epithel Cells (Auto) >30 /lpf (0-5) H 04/22/23 17:56 Urine Bacteria (Auto) Negative (Negative) 04/22/23 17:56
[2023-04-23] MEDS ORDERED: HYDROmorphone INJ 2 MG/ML SYR/VIAL IV PRN (08:49)
[2023-04-23] MEDS ORDERED: ATROPINE SULFATE 0.1 MG/ML 10ML SYR IV PRN (08:49)
[2023-04-23] MEDS ORDERED: ePHEDrine sulfate 50 MG/ML AMP IV PRN (08:49)
[2023-04-23] MEDS ORDERED: fentaNYL citrate PF 100 MCG/2 ML VIAL IV PRN (08:49)
[2023-04-23] MEDS ORDERED: ONDANSETRON INJ 2 MG/ML 2 ML VIAL IV PRN (08:49)
[2023-04-23] MEDS ORDERED: PROMETHAZINE HCL 12.5 MG in SODIUM CHLORIDE 0.9% 50 ML IV PRN (08:49)
[2023-04-23] MEDS ORDERED: buPROPion XL 150 MG TABCR PO SCH (09:00)
--- NOTE | 2023-04-23 09:41 | Surgery Progress Note ---
Date of Service April 23, 2023 Assessment & Plan (1) Acute appendicitis with localized peritonitis: Plan: Acute appendicitis Plan for laparoscopic appendectomy today Risk discussed to include but not limited to bleeding, infection, conversion open, normal appendix, need for future more extensive surgery, damage to surrounding structures, abscess formation, and the risk of anesthesia Potential discharge this afternoon Wound care instruction, return precautions, and activity restrictions reviewed Patient will follow-up in 2 weeks in the clinic Admission and Anticipated Discharge Date Admission Date: April 22, 2023 Subjective 32-year-old female admitted with acute appendicitis, no issues overnight Physical Exam Constitutional: WD/WN, vitals as above Respiratory: normal respiratory effort, lungs clear to auscultation Cardiovascular: RRR, no murmur, no edema Gastrointestinal (Abdomen): Percussion/Palpation: + abdomen tender (Tender to palpation right lower), + guarding (Localized guarding) and abdomen soft; abdomen not rigid Results & Data Vital Signs (Past 12 Hours) Vital Signs Temp Pulse Pulse Pulse Resp BP Pulse Ox 04/23/23 08:07 99 04/23/23 07:48 36.6 C 71 74 20 117/47 L 04/23/23 07:27 36.5 C 67 18 113/70 100 04/22/23 22:50 04/22/23 22:50 36.8 C 78 18 125/69 99 04/22/23 22:50 04/22/23 22:15 69 20 04/22/23 22:03 87 16 04/22/23 21:45 75 17 04/22/23 21:48 84 O2 Del Method 04/23/23 08:07 Room Air 04/23/23 07:48 04/23/23 07:27 Room Air 04/22/23 22:50 Room Air 04/22/23 22:50 Room Air 04/22/23 22:50 Room Air 04/22/23 22:15 04/22/23 22:03 04/22/23 21:45 04/22/23 21:48 Laboratory Results Laboratory Results - last 24 hr 04/22/23 04/22/23 04/22/23 17:46 17:46 17:46 WBC 15.24 H RBC 5.06 Hgb 15.9 Hct 46.7 MCV 92.3 MCH 31.4 MCHC 34.0 RDW Std Deviation 40.3 RDW Coeff of Malika 12.0 Plt Count 203 MPV 10.2 Immature Gran % (Auto) 0.4 Neut % (Auto) 88.0 Lymph % (Auto) 6.8 Anson % (Auto) 4.4 Eos % (Auto) 0.1 Baso % (Auto) 0.3 Neut # (Auto) 13.42 H Lymph # (Auto) 1.04 L Anson # (Auto) 0.67 H Eos # (Auto) 0.01 Baso # (Auto) 0.04 Immature Gran # (Auto) 0.06 Sodium 139 Potassium 4.5 Chloride 101 Carbon Dioxide 29 Anion Gap 9 BUN 18 Creatinine 0.88 Est Cr Clr Drug Dosing 78.9 Est GFR ( Amer) 99.4 Est GFR (Non-Af Amer) 85.7 BUN/Creatinine Ratio 20.5 H Glucose 108 H Calcium 9.6 Total Bilirubin 1.2 H AST 22 ALT 22 Alkaline Phosphatase 45 Total Protein 7.6 Albumin 4.6 Globulin 3.0 Albumin/Globulin Ratio 1.5 Lipase 15 HCG, Qual Negative Urine Color Urine Appearance Urine pH Ur Specific Parker Urine Protein Urine Glucose (UA) Urine Ketones Urine Blood Urine Nitrite Urine Bilirubin Urine Urobilinogen Ur Leukocyte Esterase Urine WBC (Auto) Urine RBC (Auto) U Hyaline Cast (Auto) U Epithel Cells (Auto) Urine Bacteria (Auto) 04/22/23 04/23/23 04/23/23 17:56 05:55 05:55 WBC 8.69 RBC 3.99 L Hgb 12.5 D Hct 37.4 MCV 93.7 MCH 31.3 MCHC 33.4 RDW Std Deviation 41.2 RDW Coeff of Malika 11.9 Plt Count 148 MPV 9.8 Immature Gran % (Auto) 0.6 Neut % (Auto) 67.6 Lymph % (Auto) 23.7 Anson % (Auto) 7.0 Eos % (Auto) 0.8 Baso % (Auto) 0.3 Neut # (Auto) 5.87 Lymph # (Auto) 2.06 Anson # (Auto) 0.61 H Eos # (Auto) 0.07 Baso # (Auto) 0.03 Immature Gran # (Auto) 0.05 Sodium 140 Potassium 4.4 Chloride 110 H Carbon Dioxide 29 Anion Gap 1 L BUN 13 Creatinine 0.93 Est Cr Clr Drug Dosing 76.7 Est GFR ( Amer) 92.9 Est GFR (Non-Af Amer) 80.2 BUN/Creatinine Ratio 14.0 Glucose 96 Calcium 7.7 L Total Bilirubin AST ALT Alkaline Phosphatase Total Protein Albumin Globulin Albumin/Globulin Ratio Lipase HCG, Qual Urine Color Dark Yellow Urine Appearance Clear Urine pH 7.0 Ur Specific Parker 1.028 Urine Protein Trace H Urine Glucose (UA) Negative Urine Ketones Trace H Urine Blood Negative Urine Nitrite Negative Urine Bilirubin Negative Urine Urobilinogen Negative Ur Leukocyte Esterase Negative Urine WBC (Auto) 1-5 Urine RBC (Auto) 5-10 H U Hyaline Cast (Auto) 1-5 U Epithel Cells (Auto) >30 H Urine Bacteria (Auto) Negative Diagnostic Findings CT scan personally viewed and interpreted by myself and agree with the assessment of acute nonperforated appendicitis Exam(s): CT ABDOMEN + PELVIS With Contrast IV Amt: 92 ml optiray 320 EXAM: CT Abdomen and Pelvis With Intravenous Contrast CLINICAL HISTORY: Reason for exam: RLQ pain. TECHNIQUE: Axial computed tomography images of the abdomen and pelvis with intravenous contrast. CTDI is 8.99 mGy and DLP is 421.45 mGy-cm. Automated exposure control was utilized for the study. A dose lowering technique was utilized adhering to the principles of ALARA. CONTRAST: Patient received 92 ml optiray 320 of IV contrast COMPARISON: No relevant prior studies available. FINDINGS: Lung bases: Unremarkable. No mass. No consolidation. ABDOMEN: Liver: Unremarkable. No mass. Gallbladder and bile ducts: Unremarkable. No calcified stones. No ductal dilation. Pancreas: Unremarkable. No mass. No ductal dilation. Spleen: Unremarkable. No splenomegaly. Adrenals: Unremarkable. No mass. Kidneys and ureters: Unremarkable. No solid mass. No hydronephrosis. Stomach and bowel: Unremarkable. No obstruction. No mucosal thickening. PELVIS: Appendix: Positive for acute appendicitis, consisting of a distended appendix measuring up to 9 mm with mild wall thickening and mild periappendiceal edema. Bladder: Unremarkable. No mass. Reproductive: Unremarkable as visualized. ABDOMEN and PELVIS: Intraperitoneal space: Unremarkable. No free air. No significant fluid collection. Bones/joints: No acute fracture. No dislocation. Soft tissues: Unremarkable. Vasculature: Unremarkable. No abdominal aortic aneurysm. Lymph nodes: Unremarkable. No enlarged lymph nodes. IMPRESSION: Positive for acute appendicitis, consisting of a distended appendix measuring up to 9 mm with mild wall thickening and mild periappendiceal edema. No perforation or abscess. PG Care Time/CCT Total # of Minutes Spent Total Time Spent with Patient: Total time spent is greater than 50% in coordination of care (as documented) at patient's floor/unit and/or counseling patient: Coding Level of Care Code 83276 SUB INP/OBS CARE 09/10MIN Diagnoses Acute appendicitis with localized peritonitis K35.30
[2023-04-23] MEDS ORDERED: MoRPHine SULFATE 2 MG/ML CARP ONE (10:18)
[2023-04-23] MEDS ORDERED: SUGAMMADEX SODIUM 200 MG/2 ML VIAL IV ONE (10:30)
--- NOTE | 2023-04-23 10:39 | Operative Report ---
PG Post Operative Report Pre & Post Diagnosis Operation Date: 04/23/23 07:00 Pre-Op Diagnosis: Acute appendicitis with localized peritonitis Post-Op Diagnosis: Acute appendicitis with localized peritonitis I identified the patient and participated in the time-out.: Yes Procedure Operation Date: 04/23/23 07:00 Actual Procedures p Laparoscopic Appendectomy (Not Applicable) - Nicholas Horton DO, FACS Surgeon Nicholas Horton DO, BRAD Limited Radiology Technician Zuri Simpson Estimated Blood Loss 4 Findings Consistent with Post-Op Diagnosis Acute suppurative nonperforated appendicitis Specimens Appendix Anesthesia Type General Complications none Disposition Accompanied Patient To Recovery: No Disposition: Recovery Room Indications 32-year-old female presented with signs and symptoms of acute appendicitis confirmed by CT scan, plan for laparoscopic appendectomy. The risks of the procedure were discussed, all questions were answered, and the patient agreed to proceed with surgery as planned. Description of Procedure The patient was properly identified, consented, and taken to the operating room where she was placed in the supine position. General endotracheal anesthesia was induced. SCDs and a safety belt were placed. Preoperative antibiotics were administered. A Jade catheter was not placed. The patient's abdomen was prepped and draped in the standard sterile fashion. Surgical timeout was performed and all parties were in agreement that this was the correct patient and procedure to be performed and we continued as planned. A curvilinear infraumbilical incision was made with electrocautery and deepened down to the fascia with blunt dissection. The base of the umbilicus was grasped with a Saige and elevated towards the ceiling. An incision was made in the midline fascia with a knife and entry into the peritoneum was confirmed. Stay suture of 0 Vicryl was placed and a Gaston trocar was inserted. The abdomen was insufflated with carbon dioxide which the patient tolerated without incident. The laparoscope was inserted and no damage from initial trocar placement was noted, no gross abnormalities were noted within the 4 quadrants the abdomen. 5 mm ports were then placed in the left lower quadrant with care not to damage the epigastric vessels, and in the suprapubic midline with care not to damage the bladder. The patient was placed in Trendelenburg position and rotated towards the left. The small bowel was swept away from the right lower quadrant. The cecum was grasped with an atraumatic grasper exposing the appendix. The appendix was mildly inflamed and there was no evidence of perforation. There was some reactive fluid in the pelvis. A window was created between the base of the appendix and the mesoappendix. A smiley loaded endoscopic stapler was then used to divide the appendix at its base. A smiley load was then used to divide the mesoappendix. Hemostasis was good. The appendix was placed in an Endo Catch bag and removed through the umbilical port site. There was an additional small tubular piece of tissue that may have represented residual appendiceal tip though more likely was scar tissue. This was resected with the smiley loaded stapler and sent with the specimen. The right lower quadrant and pelvis was irrigated and hemostasis was found to be good. 5 mm trochars were removed under direct visualization and the abdomen was allowed to collapse. The umbilical port site fascia was closed with 0 Vicryl suture. The wound was irrigated, and the skin of all ports was closed with 4-0 Monocryl subcuticular sutures. Dermabond was placed over the wounds. The patient was extubated in the operating room and taken to the PACU where she recovered without apparent incident. All sponge, instrument and needle counts were correct at the conclusion of the procedure. The patient tolerated the procedure well. The physician's stonecutter assistant was present and scrubbed for the entire the case. She was critical in positioning the patient, prepping and draping, retraction and exposure, driving the laparoscope, removal of the appendix, closure the incisions, placement of the dressings. I attest to the content of the Intraoperative Record and any orders documented therein. Any exceptions are noted below.
[2023-04-23] MEDS ORDERED: GLYCOPYRROLATE 0.2 MG/ML VIAL ONE (11:29)
[2023-04-23] MEDS ORDERED: LACTATED RINGER'S 1,000 ML IV SCH (11:36)
[2023-04-23] MEDS ORDERED: oxyCODONE HCL IR 5 MG TAB (IMMEDIATE RELEASE) PO PRN ×2 (11:36)
[2023-04-23] MEDS ORDERED: MoRPHine SULFATE 2 MG/ML CARP IV PRN (11:36)
--- NOTE | 2023-04-23 11:49 | Anesthesiology Progress Note ---
Date of Service April 23, 2023 Anesthesia Post Procedure Vital Signs Vital Signs: Temp Pulse Pulse Pulse Pulse Resp BP 04/23/23 11:30 37.2 C 80 20 04/23/23 11:20 36.4 C L 88 17 04/23/23 11:10 89 16 04/23/23 11:00 97 H 14 04/23/23 10:52 36.3 C L 107 H 23 04/23/23 08:07 04/23/23 07:48 36.6 C 71 74 20 04/23/23 07:27 36.5 C 67 18 04/22/23 22:50 04/22/23 22:50 36.8 C 78 18 04/22/23 22:50 04/22/23 22:15 69 20 04/22/23 22:03 87 16 04/22/23 21:45 75 17 04/22/23 21:34 83 18 04/22/23 21:48 84 04/22/23 21:36 80 18 04/22/23 21:36 04/22/23 16:41 36.9 C 87 18 133/68 BP Pulse Ox O2 Del Method 04/23/23 11:30 126/78 99 Room Air 04/23/23 11:20 125/73 97 Room Air 04/23/23 11:10 128/77 98 Room Air 04/23/23 11:00 136/80 100 Room Air 04/23/23 10:52 108/90 98 Room Air 04/23/23 08:07 99 Room Air 04/23/23 07:48 117/47 L 04/23/23 07:27 113/70 100 Room Air 04/22/23 22:50 Room Air 04/22/23 22:50 125/69 99 Room Air 04/22/23 22:50 Room Air 04/22/23 22:15 04/22/23 22:03 04/22/23 21:45 04/22/23 21:34 04/22/23 21:48 04/22/23 21:36 133/76 98 Room Air 04/22/23 21:36 98 Room Air 04/22/23 16:41 100 Room Air Pain Intensity Abdomen: Pain Intensity: 7 Transfer of Care Handoff Completed per policy Notes Mental Status: alert / awake / arousable and participated in evaluation Patient Amnestic to Procedure: Yes Nausea / Vomiting: adequately controlled Pain: adequately controlled Airway Patency, RR, SpO2: stable & adequate BP & HR: stable & adequate Hydration State: stable & adequate Anesthetic Complications: no major complications apparent
[2023-04-23] MEDS: SODIUM CHLORIDE 0.9% 1,000 ML IV SCH (12:34)
[2023-04-23] MEDS ORDERED: traZODone HCL 50 MG TAB PO SCH (21:00)
--- NOTE | 2023-04-28 09:03 | Discharge Summary ---
Date of Service April 23, 2023 Admission HPI Per Admitting Provider This is a 32-year-old female who presented the emergency department secondary to abdominal pain. Patient says that earlier this morning she developed some abdominal pain that is located in the periumbilical region as well as the right lower quadrant. She notes that the pain is worse with movement and was improved with some Toradol that was administered in the emergency department. She does not report any radiation of the pain. With her pain she has had associated nausea and vomiting and has had a low-grade temperature of 99.9. She has never had any prior abdominal surgeries. She notes her most recent oral intake was at approximately 3:00 PM on 04/22/2023 at which time she had a few small sips of water, and she also reports consuming oral contrast with the CT scan that will be delineated below Since arrival to the hospital the patient has had labs and imaging which independent reviewed. Patient did have a CT scan of the abdomen pelvis that showed patient had a distended appendix measuring approximate 9 mm with mild wall thickening and periappendiceal edema. There is no perforation or abscess noted but these findings were concerning for acute appendicitis. Labs included a CBC her white blood cell count was elevated 15.2. Hemoglobin, hematocrit, and platelet count were all normal. Chemistry profile showed sodium, potassium, BUN, and creatinine were normal. Her total bilirubin has slight elevation at 1.2 but the remaining LFTs and lipase were nonelevated. test was negative. Urinalysis was not indicative of infection. At the time of my interview the patient was resting comfortably in bed and she was in no distress. Principal Diagnosis acute appendicitis Discharge Exam awake/alert, no distress Respiratory normal respiratory effort Gastrointestinal (Abdomen) Inspection/Auscultation: + abdominal surgical incision (c/d/i with dermabond); abdomen not distended Percussion/Palpation: + abdomen tender (expected timoteo incisional discomfort to palpation ) and abdomen soft Discharge Data Allergies Allergy/AdvReac Type Severity Reaction Status Date / Time No Known Allergies Allergy Verified 04/23/23 07:48 Consultations 04/22/23 21:07 Consult General Surgery Stat Procedures Performed Operation Date: 04/23/23 07:00 Actual Procedures p Laparoscopic Appendectomy (Not Applicable) - Nicholas Horton DO, FACS Ordered Studies 04/22/23 16:42 CT abd pelvis oral and IV con Stat Hospital Course (1) Acute appendicitis: This is a 32yF who presented to the [facility] ED on 04/22/23 with abdominal pain. Workup in the ED showed a WBC of [address] a/p concerning for acute appendicitis. The patient was tender to palpation in the RLQ. Patient made NPO with IVF, started on IV abx, and was booked for the OR. On the AM of 04/23 the patient went to the OR with Dr. Horton for a laparoscopic appendectomy. The patient tolerated the procedure well, see operative report for full details. Post operatively the patient's diet was advanced, pain managed on prn meds, and incisions clean/dry/intact. On POD#0the patient was deemed stable for discharge to home. Total Time Total Time Spent Total Time Spent (In Minutes): 10 Discharge Plan Discharge Items Patient Disposition: Home - Self-Care Reason For Visit: APPY Discharge Diagnosis: laparoscopic appendectomy Activity: Per Instructions section Lifting: No more than 10 pounds Bathing Comment: may shower starting 04/24/23; no soaking in tubs/pools x 2 weeks Sexual Activity: When tolerated Exercise/Sports: Wait until after follow-up appointment Driving/Machine Use: no driving while taking narcotics for pain Non-emergency contact: Surgeon Call non-emergency contact if: your symptoms worsen, your pain is concerning for you, you have a fever, your temperature is above 101.5, your wound has increased redness, your wound has increased drainage and your wound pain has increased Follow-up/Referrals: Nicholas Horton DO, BRAD [Physician] - 05/07/23 9:15 am (Please call to schedule follow up in clinic within 2 weeks) Andres Medina DO [Primary Care Provider] - Diet: Regular Addtl Attending Provider Instructions: You have skin glue over your incisions called dermabond. you may shower with this on. It will tend to dissolve and fall off within a couple weeks. Do not pick at the skin glue If you do not require the narcotic Percocet for pain you may take plain Tylenol. Do not take plain Tylenol while you are taking the narcotic Percocet for pain. They both contain Acetaminophen and you should not exceed >3grams of Acetaminophen within a 24 hour time period You may also purchase Ibuprofen over the counter if needed for additional pain control over the next few days, take per manufacturers instructions Pending Studies at Discharge: Yes Studies:: surgical pathology Stand-Alone Forms: My [facility], Pain - Opioid Pain Management, Smoking Cessation Medications and DC Order Prescriptions: New oxycodone-acetaminophen [Percocet] 5-325 mg tablet 1 - 2 tab PO .q4-6h PRN (Reason: pain, for initial therapy, max 6 tabs per day) Qty: 12 0RF Continued trazodone 50 mg tablet 50 mg PO HS Qty: 90 3RF Medical Marjuana 1 dose inhalation DIRECTED PRN (Reason: INSOMNIA/ANXIETY) Rx Instructions: CAPSULES, EATIBLES, VAPS. levonorgestrel-ethinyl estrad [Lutera (28)] 0.1-20 mg-mcg tablet 1 tab PO DAILY Qty: 112 3RF Rx Instructions: Take 1 tablet by mouth daily of active pills only. Does not take placebo pills. valacyclovir [Valtrex] 1 gram tablet 2,000 mg PO BID PRN (Reason: cold sores) Qty: 4 5RF multivitamin Tablet 1 tab PO DAILY cetirizine-pseudoephedrine [Zyrtec-D] 5-120 mg tablet extended release 12 hr 1 tab PO BID PRN (Reason: Congestion) fluticasone propionate [Flonase Allergy Relief] 50 mcg/actuation spray,rkiy pension 1 spray intranasal DAILY PRN (Reason: Congestion) Rx Instructions: administer into each nostril bupropion HCl 150 mg tablet extended release 24 hr 150 mg PO QAM Discharge Orders: Discharge Order (Routine); Ordered 04/23/23 Ordered By: Zuri Wright/Other Patient Handouts: DVT Post Op Prevention Admission Data Admit Date/Time: 04/22/23 21:58 Attending Provider: Nicholas Horton Admit Provider: Nicholas Horton Primary Care Provider: Andres Medina Other Providers: Nicholas Horton Other Interventions: Discharge Summary Assessment (RN) Last Done: 04/23/23 16:55 Coding Level of Care Code 84773 IN/OBS DISCH 30 MIN/LESS Diagnoses Acute appendicitis K35.30 Acute appendicitis type: with localized peritonitis Appendicitis abscess presence: unspecified whether abscess present Appendicitis gangrene presence: unspecified whether gangrene present Appendicitis perforation presence: unspecified whether perforation present
== END 2023-04-23 17:35 | disposition home or self-care (01) | DRG 343 ==
LOC: ED 16:24 → 3N 21:58